=== PATIENT | female | born 1955 | race Caucasian/White ===

== ENCOUNTER 2017-06-20 11:51 | Emergency (ER) | payer BC ==
[2017-06-20] MEDS ORDERED: Acetaminophen TAB* 325 MG PO ONE (12:10)
--- NOTE | 2017-06-20 12:41 | ED ---
Head Injury - HPI Summary HPI Summary: 62F presents with head injury today. She was walking and slipped and fell on the left side of her face. The fall was a mechanical fall. She denies any chest pain or SOB. She denies any LOC or being on blood thinners. She has a headache that has not taken anything for. She denies any photophobia or change in vision. No neck pain or other injury. no dizziness or lightheadedness. Ice makes the pain better. She believes her tetanus is up to date. She has small laceration near left eyebrow that is bleeding. - History Of Current Complaint Chief Complaint: EDHeadInjury Stated Complaint: HEAD INJURY Time Seen by Provider: 06/20/17 12:04 Pain Intensity: 8 - Allergies/Home Medications Allergies/Adverse Reactions: Allergies Allergy/AdvReac Type Severity Reaction Status Date / Time No Known Allergies Allergy Verified 03/16/16 20:16 PMH/Surg Hx/FS Hx/Imm Hx Endocrine/Hematology History: Reports: Hx Thyroid Disease - Graves' disease Denies: Hx Anticoagulant Therapy Cardiovascular History: Denies: Hx Myocardial Infarction - Immunization History Date of Tetanus Vaccine: unknown Date of Influenza Vaccine: 03/2017 Infectious Disease History: No Infectious Disease History: Denies: Traveled Outside the [place] in Last 30 Days - Family History Known Family History: Positive: Cardiac Disease - Social History Alcohol Use: Weekly Substance Use Type: Reports: Sedatives Smoking Status (MU): Light Every Day Tobacco Smoker Review of Systems Negative: Fever Negative: Chest Pain Negative: Shortness Of Breath Positive: Other - facial lac Positive: Headache All Other Systems Reviewed And Are Negative: Yes Physical Exam Triage Information Reviewed: Yes Vital Signs On Initial Exam: Initial Vitals Temp Pulse Resp BP Pulse Ox 97.9 F 72 18 117/73 98 06/20/17 11:55 06/20/17 11:55 06/20/17 11:55 06/20/17 11:55 06/20/17 11:55 Vital Signs Reviewed: Yes Appearance: Positive: Well-Appearing Skin: Positive: Warm, Dry, Other - superficial 1cm laceration near left eyebrow Head/Face: Positive: Normal Head/Face Inspection, Other - ecchymosis on left side of face Eyes: Positive: Normal, EOMI, JOHANA, Conjunctiva Clear ENT: Positive: Normal ENT inspection, Pharynx normal, TMs normal Respiratory/Lung Sounds: Positive: Clear to Auscultation, Breath Sounds Present Cardiovascular: Positive: Normal, RRR Musculoskeletal: Positive: Normal Neurological: Positive: Sensory/Motor Intact, Alert, Oriented to Person Place, Time, CN Intact II-III Psychiatric: Positive: Normal - Nelson Coma Scale Best Eye Response: 4 - Spontaneous Best Motor Response: 6 - Obeys Commands Best Verbal Response: 5 - Oriented Coma Scale Total: 15 Procedures - Laceration/Wound Repair 1 Location: face Description: Linear Length, Depth and Shape: 1cm superficial Irrigated w/ Saline (ccs): 50 Closure: Skin Adhesive Diagnostics - Vital Signs Vital Signs Temp Pulse Resp BP Pulse Ox 06/20/17 11:55 97.9 F 72 18 117/73 98 - Laboratory Lab Statement: Any lab studies that have been ordered have been reviewed, and results considered in the medical decision making process. - CT brain, maxillary facial CT Interpretation: No Acute Changes CT Interpretation Completed By: Radiologist Head Injury Course/Dx Course Of Treatment: 62F presents with head injury today. She was walking and slipped and fell on the left side of her face. The fall was a mechanical fall. She denies any chest pain or SOB. She denies any LOC or being on blood thinners. She has a headache that has not taken anything for. She denies any photophobia or change in vision. No neck pain or other injury. no dizziness or lightheadedness. Ice makes the pain better. She believes her tetanus is up to date. on exam has 1cm superficial lac on left side of face. normal neuro exam. ecchymosis near left eye. CT brain and face normal. cleaned lac and placed glue. patient understand and agrees with plan. - Diagnoses Differential Diagnosis/HQI/PQRI: Concussion Without LOC, Contusion, Intracranial Bleed, Laceration Provider Diagnoses: Head injury, Facial injury, Facial laceration Discharge - Discharge Plan Condition: Good Disposition: HOME Patient Education Materials: Head Injury (ED), Facial Contusion (ED) Referrals: Rakel Villatoro MD [Primary Care Provider] - Additional Instructions: Glue will fall off on own Keep as dry as possible next [address] ice on area as needed Take Tylenol for headache every 6 hours Follow up with primary within 5 days Return to ED if develop vomiting, severe headache, change in behavior, or any new or worsening symptoms
--- NOTE | 2017-06-20 12:48 | RAD ---
HISTORY: Head injury COMPARISONS: None TECHNIQUE: Multiple contiguous axial CT scans were obtained of the head without intravenous contrast. FINDINGS: HEMORRHAGE/INFARCT: There is no hemorrhage or acute infarct. MASSES/SHIFT: There is no mass or shift. EXTRA-AXIAL SPACES: There are no extra-axial fluid collections. SULCI AND VENTRICLES: The sulci and ventricles are normal in size and position for the patient's stated age. CEREBRUM: There are no focal parenchymal abnormalities. BRAINSTEM: There are no focal parenchymal abnormalities. CEREBELLUM: There are no focal parenchymal abnormalities. VESSELS: The vessels are grossly normal. PARANASAL SINUSES: The paranasal sinuses are clear. ORBITS: The orbits are unremarkable. BONES AND SOFT TISSUE: There is left supraorbital soft tissue swelling. OTHER: None IMPRESSION: NO ACUTE INTRACRANIAL PATHOLOGY.
--- NOTE | 2017-06-20 12:52 | RAD ---
HISTORY: Head injury, facial trauma COMPARISONS: None TECHNIQUE: Multiple contiguous axial CT scans were obtained of the face without intravenous contrast, with coronal and sagittal multiplanar reformations. FINDINGS: BONES: There is no displaced fracture or dislocation. The orbital rim is intact. The zygomatic arch is intact. The pterygoid plates are intact. Mild degenerative changes are noted of the cervical spine ORBITS: The globes are round. The optic nerves are symmetric. The extraocular musculature is normal. There is no post septal or intraconal inflammatory change. There is no retrobulbar hematoma. PARANASAL SINUSES: The paranasal sinuses are clear. BRAIN AND SOFT TISSUE: There is soft tissue swelling with a small subcutaneous hematoma of the left frontal supraorbital scalp. OTHER: None. IMPRESSION: NO FACIAL FRACTURE
[2017-06-20 13:13] VITALS: BP 119/84
== END 2017-06-20 13:12 | disposition home or self-care (01) ==
LOC: ED 11:51
DX: S09.90XA Unspecified injury of head, initial encounter (principal); W01.0XXA Fall on same level from slipping, tripping and stumbling without subsequent striking against object, initial encounter; Y92.9 Unspecified place or not applicable; S01.81XA Laceration without foreign body of other part of head, initial encounter; F17.210 Nicotine dependence, cigarettes, uncomplicated
CPT/HCPCS: 70450; 70486; 99282; A9270-GY